=== PATIENT | male | born 1980 | race Two or more races ===

== ENCOUNTER 2020-10-01 14:44 | Emergency (ER) | payer OTHER ==
[~2020-10-01] VITALS: Ht 182.9 cm; Wt 95.3 kg
[2020-10-01] MEDS ORDERED: ZESTRIL40 M1 PO (14:55)
[2020-10-01] MEDS ORDERED: IVERMECTIN3 MG PO (22:11)
== END 2020-10-01 22:31 | disposition home or self-care (01) ==
LOC: ER 14:44
DX: U07.1 COVID-19 (principal); I16.0 Hypertensive urgency; I10 Essential (primary) hypertension; M79.18 Myalgia, other site

== ENCOUNTER 2021-02-06 18:22 | Emergency (ER) | payer OTHER ==
[~2021-02-06] VITALS: Ht 182.9 cm; Wt 90.7 kg
[~2021-02-06 18:22] MED LIST: IVERMECTIN3 MG PO; ZESTRIL40 M1 PO
[2021-02-06] MEDS ORDERED: KETO10TA2 PO (21:18)
== END 2021-02-06 21:56 | disposition home or self-care (01) ==
LOC: ER 18:22
DX: M04.8 Other autoinflammatory syndromes (principal)

== ENCOUNTER 2021-06-21 10:30 | Emergency (ER) | payer OTHER ==
[~2021-06-21] VITALS: Ht 182.9 cm; Wt 95.3 kg
[~2021-06-21 10:30] MED LIST changes: +KETO10TA2 PO
[2021-06-21] MEDS ORDERED: COZAAR25 MG PO (11:11)
== END 2021-06-21 15:26 | disposition home or self-care (01) ==
LOC: ER 10:30
DX: B34.8 Other viral infections of unspecified site (principal); Z20.822 Contact with and (suspected) exposure to COVID-19

== ENCOUNTER 2022-10-02 15:50 | Emergency (ER) | payer OTHER ==
[~2022-10-02] VITALS: Ht 182.9 cm; Wt 92.1 kg
[~2022-10-02 15:50] MED LIST changes: +COZAAR25 MG PO
[2022-10-02] MEDS ORDERED: COZAAR100 MG PO (16:36)
== END 2022-10-02 17:23 | disposition home or self-care (01) ==
LOC: ER 15:50
DX: H11.32 Conjunctival hemorrhage, left eye (principal)

== ENCOUNTER → 2022-10-08 | Emergency (ER) | payer OTHER ==
[~2022-10-08] VITALS: Ht 182.9 cm; Wt 90.7 kg
[~2022-10-08] MED LIST changes: +COZAAR100 MG PO
== END | disposition home or self-care (01) ==
LOC: ER 16:15
DX: K29.60 Other gastritis without bleeding (principal); I10 Essential (primary) hypertension

== ENCOUNTER 2023-05-12 23:27 | Emergency (ER) | payer OTHER ==
[~2023-05-12] VITALS: Ht 182.9 cm; Wt 86.2 kg
[2023-05-13] MEDS ORDERED: TOPROL XL50 M1 PO (00:04)
[2023-05-13 01:38] LABS: HEMATOCRIT 40.5 % (39.0-48.0); HEMOGLOBIN 13.3 g/dL (13-16.00); MEAN CELL VOLUME 85.9 fL (80.0-100.00); MEAN CORPUSCULAR HEMOGLOBIN 28.3 pg (27.00-32.0); MEAN CORPUSCULAR HGB CONC 32.9 g/dl (32.0-36.0); PLATELET COUNT 193 K/uL (150-450); RED BLOOD COUNT 4.71 M/uL (4.00-6.00); RED CELL DISTRIBUTION WIDTH 14.1 % (11.5-14.5)
[2023-05-13 02:07] LABS: ALBUMIN 3.8 gm/dL (3.4-5.0); BILIRUBIN TOTAL 0.31 mg/dL (0.3-1.2); CALCIUM 9.3 mg/dL (8.5-10.1); CREATININE SERUM 1.17 mg/dL (0.70-1.30); GFR 68.04; POTASSIUM 4.04 mEq/L (3.5-5.1); TOTAL PROTEIN 7.8 gm/dL (6.4-8.2)
[2023-05-13] MEDS ORDERED: ZITHROMAX500 MG PO (02:53)
[2023-05-13] MEDS ORDERED: ONDANSETRON ODT8 MG PO (02:53)
[2023-05-13] MEDS ORDERED: TUSNEL LIQUID178 ML PO (02:53)
[2023-05-13] MEDS ORDERED: PEPCID AC20 MG PO (02:53)
== END 2023-05-13 03:28 | disposition home or self-care (01) ==
LOC: ER 23:27
PROVIDERS: General Practice
DX: J06.9 Acute upper respiratory infection, unspecified (principal); R10.9 Unspecified abdominal pain; I10 Essential (primary) hypertension; Z20.822 Contact with and (suspected) exposure to COVID-19

== ENCOUNTER 2024-08-26 09:55 | Emergency (ER) | payer OTHER ==
[~2024-08-26] VITALS: Ht 182.9 cm; Wt 99.8 kg
[~2024-08-26 09:55] MED LIST changes: +ONDANSETRON ODT8 MG PO; +PEPCID AC20 MG PO; +TOPROL XL50 M1 PO; +TUSNEL LIQUID178 ML PO; +ZITHROMAX500 MG PO
[2024-08-26] MEDS ORDERED: ACETAMINOPHEN 500 MG GEL..CAP PO STA (11:26)
== END 2024-08-26 12:58 | disposition home or self-care (01) ==
LOC: ER 09:58
DX: R53.81 Other malaise (principal); J10.1 Influenza due to other identified influenza virus with other respiratory manifestations; Z20.822 Contact with and (suspected) exposure to COVID-19; I10 Essential (primary) hypertension

== ENCOUNTER 2024-09-23 17:27 | Emergency (ER) | payer OTHER ==
[~2024-09-23] VITALS: Ht 182.9 cm; Wt 94.3 kg
[2024-09-23 18:09] VITALS: BP 146/90; O2SAT 98
[2024-09-23] MEDS ORDERED: LOSARTAN-HCTZ1 EAC2 PO (18:09)
[2024-09-23] MEDS ORDERED: KETOROLAC TROMETHAMINE 15 MG VIAL IM STA (20:05)
[2024-09-23] MEDS ORDERED: ORPHENADRINE CITRATE 30 MG/ML AMPUL IM STA (20:05)
[2024-09-23] MEDS ORDERED: ORPHENADRINE CITRATE 30 MG/ML AMPUL ONE (20:08)
[2024-09-23] MEDS ORDERED: KETOROLAC TROMETHAMINE 30 MG VIAL ONE (20:08)
[2024-09-23] MEDS ORDERED: DICLOFENAC POTA50 MG PO (20:54)
[2024-09-23] MEDS ORDERED: METAXALONE800 MG PO (20:54)
== END 2024-09-23 21:03 | disposition home or self-care (01) ==
LOC: ER 17:28
DX: S33.5XXA Sprain of ligaments of lumbar spine, initial encounter (principal); X58.XXXA Exposure to other specified factors, initial encounter; Y93.89 Activity, other specified; Y92.013 Bedroom of single-family (private) house as the place of occurrence of the external cause; M54.9 Dorsalgia, unspecified; I10 Essential (primary) hypertension